=== PATIENT | male | born 1995 | race Caucasian/White ===

== ENCOUNTER 2018-12-05 07:48 | Emergency (ER) | payer SELFPAY ==
[~2018-12-05] VITALS: Ht 175.3 cm; Wt 63.5 kg
[~2018-12-05 07:48] MED LIST: B50 PO; EPIN0.3P3 IM
[2018-12-05] MEDS ORDERED: IBUPROFEN 600MG TABLET PO STA (08:56)
[2018-12-05 10:18] VITALS: BP 134/92
== END 2018-12-05 10:20 | disposition home or self-care (01) ==
LOC: ER 07:51
DX: S69.82XA Other specified injuries of left wrist, hand and finger(s), initial encounter (principal); W23.0XXA Caught, crushed, jammed, or pinched between moving objects, initial encounter; Y93.9 Activity, unspecified; Y92.9 Unspecified place or not applicable
CPT/HCPCS: 73140; 99283

== ENCOUNTER 2020-10-14 00:14 | Emergency (ER) | payer SELFPAY ==
[~2020-10-14] VITALS: Ht 175.3 cm; Wt 75.0 kg
[2020-10-14 00:23] VITALS: BP 104/71
== END 2020-10-14 02:11 | disposition home or self-care (01) ==
LOC: ER 00:14
DX: Z53.21 Procedure and treatment not carried out due to patient leaving prior to being seen by health care provider (principal)

== ENCOUNTER 2021-02-10 18:12 | Emergency (ER) | payer SELFPAY ==
[~2021-02-10] VITALS: Ht 172.7 cm; Wt 71.0 kg
[2021-02-10 18:33] VITALS: BP 141/77
[2021-02-10] MEDS ORDERED: ACETAMINOPHEN 325MG TABLET PO ONE (19:15)
[2021-02-10] MEDS ORDERED: IBUP-2028 PO (19:21)
== END 2021-02-10 20:38 | disposition home or self-care (01) ==
LOC: ER 18:12
DX: S62.396A Other fracture of fifth metacarpal bone, right hand, initial encounter for closed fracture (principal); Y08.89XA Assault by other specified means, initial encounter; Y93.89 Activity, other specified; Y92.9 Unspecified place or not applicable
CPT/HCPCS: 29125; 73130; 99283; A4565

== ENCOUNTER 2025-04-29 01:01 | Emergency (ER) | payer MEDICAID ==
[~2025-04-29] VITALS: Ht 172.7 cm; Wt 72.0 kg
[~2025-04-29 01:01] MED LIST changes: -B50 PO; -EPIN0.3P3 IM; +IBUP-2028 PO
[2025-04-29 01:05] VITALS: O2SAT 99
[2025-04-29] MEDS: DIPHENHYDRAMINE 12.5MG/5ML UDC PO ONE (03:27)
[2025-04-29] MEDS: FAMOTIDINE 20MG TABLET PO ONE (03:27)
[2025-04-29] MEDS ORDERED: DIPH25CA83 MT (03:30)
[2025-04-29 04:13] VITALS: BP 120/60; PULSE 99; RESP 18; TEMP 36.7; O2SAT 99
== END 2025-04-29 04:16 | disposition home or self-care (01) ==
LOC: ER 01:01
DX: T78.40XA Allergy, unspecified, initial encounter (principal); F12.90 Cannabis use, unspecified, uncomplicated; W57.XXXA Bitten or stung by nonvenomous insect and other nonvenomous arthropods, initial encounter; Y93.89 Activity, other specified; Y92.89 Other specified places as the place of occurrence of the external cause; Y99.8 Other external cause status
CPT/HCPCS: 99283; Q0163; Z7610